=== PATIENT | female | born 1945 | race Two or more races ===

== ENCOUNTER 2020-02-07 07:00 | Day surgery (SDC) | payer OTHER ==
[~2020-02-07 07:00] MED LIST: AVAPRO150 MG PO; CALTRATE PO; MAGNESIUM PO; VITAMIN D PO; VITAMIN E PO
== END 2020-02-07 17:40 | disposition home or self-care (01) ==
LOC: CIR.AMB 07:00 → EDBD 08:30 → CIR.AMB 08:30
PROVIDERS: ATTEND Specialist
DX: D24.1 Benign neoplasm of right breast (principal); D24.2 Benign neoplasm of left breast

== ENCOUNTER → 2024-05-04 | Emergency (ER) | payer OTHER ==
[~2024-05-04] VITALS: Ht 149.9 cm; Wt 56.7 kg
[~2024-05-04] MED LIST changes: +CRESTOR40 MG; +GENTAMICIN SULFA5 ML OP
== END | disposition home or self-care (01) ==
LOC: ER 10:30
DX: S05.12XA Contusion of eyeball and orbital tissues, left eye, initial encounter (principal); X58.XXXA Exposure to other specified factors, initial encounter; Y93.H2 Activity, gardening and landscaping; Y92.017 Garden or yard in single-family (private) house as the place of occurrence of the external cause; Y99.9 Unspecified external cause status; I10 Essential (primary) hypertension